=== PATIENT | female | born 1935 | race Caucasian/White ===

== ENCOUNTER 2018-10-05 16:20 | Observation (INO) ==
[2018-10-05] MEDS ORDERED: Naloxone 0.4 MG/ML INJ IVP PRN (19:56)
--- NOTE | 2018-10-05 20:02 | Internal Med History&Physical ---
Date of Encounter: 10/05/18 Time of Encounter: 19:40 Internal Medicine - H&P: HPI Chief complaint: Abdominal pain Admitted From: Hospital to Hospital Transfer Plans for Post Hospital Care: Home History of present illness: Ms. Enriquez is a 82 year old female Patient presented to [facility] emergency room with four-day history of right-sided flank pain. The pain is intermittent, and started without provocation. She has had similar pain in the past many years ago, but did not seek medical attention at that time, and the pain resolved on its own. This pain is worse than her previous episode however. She has had associated nausea and vomiting, but denies pain with urination and hematuria. She does not think she has had a fever at home either. She describes pain as a stabbing sensation. In the [facility] emergency room, patient's vital signs were within normal limits, CBC was within normal limits as well aside from a mildly elevated white count of 14.0. Patient's BMP was also within normal limits. Lactic acid was 2.0, and urinalysis was negative for infection as well as blood. An abdomen and pelvis CT was performed that showed no acute infective or inflammatory process, but did show mild to moderate right hydronephrosis with right ureter dilation in the region where the right external iliac and common iliac arteries cross. Findings possibly due to extrinsic compression by the iliac vessels. The emergency room notified on-call urology Dr. Yost and he agreed to see the patient upon transfer to [facility]. Upon my assessment, patient is resting comfortably in the hospital bed in no acute distress. She denies chest pain, diarrhea and constipation. As above she has had an episode of nausea and vomiting earlier, but only one episode. She confirms her abdominal pain history mentioned above. She has no significant family history, aside from heart disease. She has had previous abdominal surgeries including cholecystectomy and appendectomy. She denies history of kidney disease. I discussed with her CODE STATUS, and she stated that she wishes to not be resuscitated nor intubated if they were necessary. She would not want chest compressions were intubation. Past Med Surg Social Fam HX - Past Medical History Medical history: GERD, hyperlipidemia, hypertension, myocardial infarction Additional medical history: CO 6 - 8 years ago. Psychiatric history: no psych history - Social History Smoking Status: Former smoker Smokeless Tobacco Status: No Alcohol use: none Drug use: none - Family History Mother Living Status: Cause of : blood cot Father Living Status: Hx Family Cardiac Disorders: Yes Internal Medicine - H&P: Meds Aspirin 81 mg PO DAILY 11/12/15 [History] Captopril [Capoten] 12.5 mg PO BID 11/12/15 [History] Clopidogrel [Plavix] 75 mg PO DAILY 11/12/15 [History] Ranitidine HCl [Heartburn Relief] 150 mg PO BID 11/12/15 [History] Simvastatin [Zocor] 40 mg PO HS 11/12/15 [History] Allergy/AdvReac Type Severity Reaction Status Date / Time No Known Allergies Allergy Verified 10/29/15 10:54 All Systems PM: A 10-system review of systems was performed and is negative for pertinent findings except as documented above in the HPI. - Constitutional Vitals: Temp Pulse Resp BP Pulse Ox 98.3 F 79 16 149/83 94 10/05/18 18:07 10/05/18 18:07 10/05/18 18:07 10/05/18 18:07 10/05/18 18:07 General appearance: Present: cooperative, A&O X 3, pleasant, no acute distress, answers questions appropriately Exam: - - Head Head exam: Present: normal inspection - Eye Eye exam: Present: EOMI, normal appearance - Respiratory Respiratory exam: Present: CTAB. Absent: rales, respiratory distress, rhonchi, wheezes - Cardiovascular Cardiovascular exam: Present: RRR. Absent: diastolic murmur, systolic murmur - GI/Abdominal GI/Abdominal exam: Present: normal bowel sounds, soft, tenderness Additional comments: Mild tenderness with palpation right worse than left - Extremities Exam Extremities exam: Present: warm, radial pulses palpable and symmetrical. Absent: calf tenderness, pedal edema, tenderness - Neurological Exam Neurological exam: Present: motor sensory deficit, no focal deficits, strengths equal and symetr throughout. Absent: facial droop, speech deficit - Skin Skin exam: Present: dry, normal color, warm - Assessment and Plan (1) Abdominal pain Current Visit: Yes Status: Acute Assessment and plan: Patient has abdominal pain, off and on, right side worse than left. Found to have mild to moderate hydronephrosis with dilated ureter on CT of the abdomen. Appears that there is some compression from the iliac vessels that may contribute. Patient denies having recent kidney stone or dysuria. Urology was called and will see the patient in the morning. Nothing by mouth after midnight Follow-up urology recommendations Pain management as needed Qualifiers: Abdominal location: right lower quadrant Qualified Code(s): R10.31 - Right lower quadrant pain (2) Hydronephrosis, right Current Visit: No Status: Acute Assessment and plan: Likely related to patient's abdominal pain. Management as above Urology to consult (3) GERD (gastroesophageal reflux disease) Current Visit: Yes Status: Acute Assessment and plan: Chronic, patient takes ranitidine at home Qualifiers: Esophagitis presence: without esophagitis Qualified Code(s): K21.9 - Gastro-esophageal reflux disease without esophagitis (4) DVT prophylaxis Current Visit: Yes Status: Acute Assessment and plan: SCDs - Time Spent With Patient Total time spent is greater than 50% in coordination of care (as documented) at patient's floor/unit and/or counseling patient: Greater than 35 minutes
[2018-10-05] MEDS ORDERED: Acetaminophen 325 MG TABLET PO PRN (20:08)
[2018-10-05] MEDS: Famotidine 20 MG TABLET PO SCH (22:29)
[2018-10-06 06:06] LABS: Hematocrit 40.5 % (35.3-44.9); Hemoglobin 12.9 g/dL (11.5-15.4); Mean Corpuscular HGB Conc 31.9 g/dL (31.6-35.5); Mean Corpuscular Hemoglobin 31.5 pg (28.0-33.3); Mean Corpuscular Volume 98.8 fL (83.0-100.0); Mean Platelet Volume 9.7 fL (9.4-12.4); Platelet Count 187 K/mcL (140-400); Red Cell Distribution Width 13.9 % (11.5-14.5)
[2018-10-06 06:28] LABS: BUN/Creatinine Ratio 19 (6-26); Blood Urea Nitrogen 14 mg/dL (8-23); Calcium 9.2 mg/dL (8.6-10.3); Carbon Dioxide 26 mEq/L (23-29); Chloride 106 mEq/L (98-107); Glucose 97 mg/dL (70-105); Osmolality,Calculated 294 (280-300); Potassium 3.8 mEq/L (3.5-5.1); Sodium 142 mEq/L (136-145); eGFR For Non-African Americans > 60 (> 60)
--- NOTE | 2018-10-06 08:56 | Urology - Consult Note ---
<Rosalinda Jennings N - Last Filed: 10/06/18 10:50> Date of Encounter: 10/06/18 Time of Encounter: 08:15 - Assessment and Plan (1) Hydronephrosis, right Current Visit: Yes Status: Acute Assessment and plan: Patient is an 82-year-old female who presents with right-sided hydronephrosis. Reviewed CT findings with patient at bedside. I discussed proceeding with diagnostic ureteroscopy with possible dilation and possible ureteral stent placement. As I reviewed the surgical risks and benefits, patient wished to further consider this versus observation with renal ultrasound. I explained the risk of renal stone development and risk of UTI, pyelonephritis, and renal damage. Patient ultimately decided to proceed with diagnostic ureteroscopy with possible biopsy, dilation, and stent placment. Patient will remain NPO and anticipate surgery later this morning with Dr. Yost. Urology CN:[facility] Consult date: 10/06/18 Reason for consult Urology: Hydronephrosis (right) Requesting physician: Napoleon Preciado History of present illness: Patient is an 82-year-old female who presents with right hydronephrosis. Patient reports she has a long-standing history of right flank pain, but this acutely worsened and brought her to the emergency department. Patient denies any change in voiding habits including gross hematuria, dysuria, frequency, urgency or incontinence. Patient denies any recent history of urinary tract infection, fever or chills. Patient underwent a CT of the abdomen and pelvis revealing mild to moderate right hydronephrosis and possible crossing vessel. Currently, patient is sitting upright in bed resting comfortably in no apparent distress. Patient denies any past history of renal stones. Patient denies any known family history of renal stones or malignancy. Patient admits to a 15- 20 year smoking history, but she has not smoked cigarettes in over 30 years. Past Med Surg Social Fam HX - Past Medical History Medical history: GERD, hyperlipidemia, hypertension, myocardial infarction Additional medical history: ND 6 - 8 years ago. Psychiatric history: no psych history - Past Surgical History Surgical History: appendectomy, cholecystectomy - Social History Smoking Status: Former smoker Smokeless Tobacco Status: No Alcohol use: none Drug use: none - Family History Mother Living Status: Cause of : blood cot Father Living Status: Hx Family Cardiac Disorders: Yes Medications and Allergies Aspirin 81 mg PO DAILY 11/12/15 [History] Captopril [Capoten] 12.5 mg PO BID 11/12/15 [History] Clopidogrel [Plavix] 75 mg PO DAILY 11/12/15 [History] Ranitidine HCl [Heartburn Relief] 150 mg PO BID 11/12/15 [History] Simvastatin [Zocor] 40 mg PO HS 11/12/15 [History] Allergy/AdvReac Type Severity Reaction Status Date / Time No Known Allergies Allergy Verified 10/29/15 10:54 Review of Systems - Constitutional no chills, no fatigue, no fever(s) - EENT Nose, mouth and throat: no dry mouth, no headache(s) - Cardiovascular no chest pain, no diaphoresis, no dyspnea - Respiratory no cough, no dyspnea - Gastrointestinal abdominal pain, change in bowel habits (constipation ), no nausea, no vomiting - Genitourinary Genitourinary: flank pain, no change in urinary stream, no difficulty urinating, no dysuria, no hematuria, no urinary frequency, no urinary hesitancy, no urinary incontinence, no urinary urgency - Musculoskeletal back pain, no muscle weakness - Integumentary no erythema, no rash - Neurological no confusion, no syncope - Psychiatric no anxiety, no confusion - Hematologic/Lymphatic no easy bleeding, no easy bruising - Allergic/Immunologic no throat swelling, no wheezing Exam Initial Vital Signs Temp Pulse Resp BP Pulse Ox 98.3 F 79 16 149/83 94 10/05/18 18:07 10/05/18 18:07 10/05/18 18:07 10/05/18 18:07 10/05/18 18:07 - General physical appearance Present: no distress, no pain - Eyes Present: PERRL, normal ocular movement - ENT Present: normal nares, no hearing loss, no congestion - Neck Present: no masses, trachea midline, no lymphadenopathy - Respiratory Present: normal respiratory effort - Cardiovascular Cardiovascular exam IM: RRR - Abdomen Abdomen: Present: soft, non tender - Integumentary Present: no rash, no abnormal pigmentation - Neurologic Present: normal coordination - Musculoskeletal Present: other (Normal posture) Urology Results - Labs 10/06/18 04:57 10/06/18 04:57 Abnormal lab results POC Glucose 103 mg/dL (70-99) H 10/06/18 05:24 Diabetes panel 10/06/18 Range/Units 04:57 Sodium 142 (136-145) mEq/L Potassium 3.8 (3.5-5.1) mEq/L Chloride 106 (98-107) mEq/L Carbon Dioxide 26 (23-29) mEq/L BUN 14 (8-23) mg/dL Creatinine 0.74 (0.60-1.20) mg/dL Glucose 97 (70-105) mg/dL Calcium 9.2 (8.6-10.3) mg/dL Calcium panel 10/06/18 Range/Units 04:57 Calcium 9.2 (8.6-10.3) mg/dL Pituitary panel 10/06/18 Range/Units 04:57 Sodium 142 (136-145) mEq/L Potassium 3.8 (3.5-5.1) mEq/L Chloride 106 (98-107) mEq/L Carbon Dioxide 26 (23-29) mEq/L BUN 14 (8-23) mg/dL Creatinine 0.74 (0.60-1.20) mg/dL Glucose 97 (70-105) mg/dL Calcium 9.2 (8.6-10.3) mg/dL Adrenal panel 10/06/18 Range/Units 04:57 Sodium 142 (136-145) mEq/L Potassium 3.8 (3.5-5.1) mEq/L Chloride 106 (98-107) mEq/L Carbon Dioxide 26 (23-29) mEq/L BUN 14 (8-23) mg/dL Creatinine 0.74 (0.60-1.20) mg/dL Glucose 97 (70-105) mg/dL Calcium 9.2 (8.6-10.3) mg/dL All other labs normal. - Imaging CT scan - abdomen: report reviewed, image reviewed CT scan - pelvis: report reviewed, image reviewed Consult Discharge Plan - Plan Referrals: NONE,PCP [Primary Care Provider] - <Napoleon Yost - Last Filed: 10/06/18 12:40> Date of Encounter: 10/06/18 - Assessment and Plan (1) Obstruction of right ureteropelvic junction (UPJ) Current Visit: Yes Status: Acute Assessment and plan: CT images reviewed and interpreted independently. Patient with one-week history of intermittent low-grade nagging abdominal pain. CT with only identifiable abnormality being moderate hydroureteronephrosis on the right to proximal level of the UPJ. There is some additional dilation of short segment of the distal mid ureter, but the proximal ureter is not dilated. Discussed findings with patient and possibility of UPJ as a source of pain. Plan: Add on for stenting trial today. (2) Abdominal pain Current Visit: Yes Status: Acute Assessment and plan: Unclear etiology. Right-sided in nature 1 week. Only identifiable abnormality on CT is moderate right hydronephrosis. Plan: Diagnostic ureteroscopy. Qualifiers: Abdominal location: right lower quadrant Qualified Code(s): R10.31 - Right lower quadrant pain (3) Hydronephrosis, right Current Visit: Yes Status: Acute Assessment and plan: Patient seen and examined independently. History, review of systems and physi yari exam findings of PA verified. All pertinent imaging reviewed. I am in agreement with the assessment and plan as outlined by our Urologic Surgery Department Physician Tennis Desk Team Member, Michaela. Discussed options for management with patient in detail. Bilateral add on for urgent urinary diversion today via stent placement. Exam Initial Vital Signs Temp Pulse Resp BP Pulse Ox 98.3 F 79 16 149/83 94 10/05/18 18:07 10/05/18 18:07 10/05/18 18:07 10/05/18 18:07 10/05/18 18:07 Urology Results - Labs 10/06/18 04:57 10/06/18 04:57 Abnormal lab results POC Glucose 103 mg/dL (70-99) H 10/06/18 05:24 Diabetes panel 10/06/18 Range/Units 04:57 Sodium 142 (136-145) mEq/L Potassium 3.8 (3.5-5.1) mEq/L Chloride 106 (98-107) mEq/L Carbon Dioxide 26 (23-29) mEq/L BUN 14 (8-23) mg/dL Creatinine 0.74 (0.60-1.20) mg/dL Glucose 97 (70-105) mg/dL Calcium 9.2 (8.6-10.3) mg/dL Calcium panel 10/06/18 Range/Units 04:57 Calcium 9.2 (8.6-10.3) mg/dL Pituitary panel 10/06/18 Range/Units 04:57 Sodium 142 (136-145) mEq/L Potassium 3.8 (3.5-5.1) mEq/L Chloride 106 (98-107) mEq/L Carbon Dioxide 26 (23-29) mEq/L BUN 14 (8-23) mg/dL Creatinine 0.74 (0.60-1.20) mg/dL Glucose 97 (70-105) mg/dL Calcium 9.2 (8.6-10.3) mg/dL Adrenal panel 10/06/18 Range/Units 04:57 Sodium 142 (136-145) mEq/L Potassium 3.8 (3.5-5.1) mEq/L Chloride 106 (98-107) mEq/L Carbon Dioxide 26 (23-29) mEq/L BUN 14 (8-23) mg/dL Creatinine 0.74 (0.60-1.20) mg/dL Glucose 97 (70-105) mg/dL Calcium 9.2 (8.6-10.3) mg/dL All other labs normal.
[2018-10-06] MEDS ORDERED: Aspirin 81 MG TAB.CHEW PO SCH (09:00)
[2018-10-06] MEDS: Famotidine 20 MG TABLET PO SCH (10:09)
--- NOTE | 2018-10-06 10:51 | Internal Med Progress Note ---
Hospitalist Progress Note - Encounter Date of Encounter: 10/06/18 Time of Encounter: 09:49 - Subjective Interval History: Patient seen and examined this morning at bedside. No acute overnight events. Denies any nausea vomiting fevers chills or diarrhea. Has mild right-sided abdominal pain. Denies any urinary complaints. Hemodynamic stable. - Exam Vitals: Temp Pulse Resp BP Pulse Ox 98.1 F 71 14 115/63 93 10/06/18 04:38 10/06/18 04:38 10/06/18 04:38 10/06/18 04:38 10/06/18 04:38 Exam: General: In no acute distress. Respiratory exam: CTAB. no accessory muscle use, rales, rhonchi, wheezes Cardiovascular exam: RRR, +S1, +S2. 3/6 systolic murmur noted, no gallop, rubs. GI/Abdominal exam: mild rt flank tenderness, Non-distended, normal bowel sounds, soft, no peritoneal signs. Extremities exam: no pedal edema, pulses palpable in b/l lower extremities. no calf tenderness Neurological exam: CN II-XII intact, AO X3, no focal deficits. Skin exam: No skin rash - Summary of Assessment and Plan Summary of Assessment and Plan: Assessment Abdominal pain Right-sided hydronephrosis GERD DVT prophylaxis Plan - Mild to moderate hydronephrosis on right on CT. Urology following. Plan for ureteroscopy and possible stenting - Monitor renal function. UA unremarkable. - Keep nothing by mouth. - Time Spent with Patient Total time spent is greater than 50% in coordination of care (as documented) at patient's floor/unit and/or counseling patient: Internal Medicine: Result - Labs CBC & Chem 7: 10/06/18 04:57 10/06/18 04:57 Labs: Short CBC 10/06/18 Range/Units 04:57 WBC 8.4 (4.3-11.1) K/mcL Hgb 12.9 (11.5-15.4) g/dL Hct 40.5 (35.3-44.9) % Plt Count 187 (140-400) K/mcL BMP 10/06/18 04:57 Sodium 142 Potassium 3.8 Chloride 106 Carbon Dioxide 26 BUN 14 Creatinine 0.74 Glucose 97 Calcium 9.2 Consult Discharge Plan - Plan Referrals: NONE,PCP [Primary Care Provider] -
[2018-10-06] MEDS ORDERED: *HR* Propofol 200 MG/20 ML VIAL IVP ONE (12:40)
[2018-10-06] MEDS ORDERED: *HR* FentaNYL (PF) 100 MCG/2 ML VIAL ONE (12:40)
[2018-10-06] MEDS ORDERED: Lidocaine -MPF 2% 2 ML VIAL ONE (12:42)
[2018-10-06] MEDS ORDERED: Dexamethasone 4 MG/ML VIAL ONE (12:42)
[2018-10-06] MEDS ORDERED: Ondansetron 4 MG/2 ML VIAL ONE (12:42)
--- NOTE | 2018-10-06 12:50 | Anesthesia Evaluation PreOp ---
Date of Encounter: 10/06/18 Time of Encounter: 12:51 - Past History Planned Operation: cysto, right RP, ureteroscopy, dilation Cardiac History: ND (7-8 years ago), HTN, Hyperlipidemia, Cardiac Stent (7-8 years ago), Other (can walk up a flight of stairs slowly) Pulmonary History: Former smoker (quit a long time ago) BUSINESS OFFICE ASSISTANT History: Denies Any Significant HX Other Medical History: Renal (right hydronephrosis (mild)), GERD Anesthesia History: No Prior Anesthetic Complications, Past Anesthesia (appendectomy, cholecystectomy) Alcohol Use: none Drug use: none Medications and Allergies Aspirin 81 mg PO DAILY 11/12/15 [History] Captopril [Capoten] 12.5 mg PO BID 11/12/15 [History] Clopidogrel [Plavix] 75 mg PO DAILY 11/12/15 [History] Ranitidine HCl [Heartburn Relief] 150 mg PO BID 11/12/15 [History] Simvastatin [Zocor] 40 mg PO HS 11/12/15 [History] Allergy/AdvReac Type Severity Reaction Status Date / Time No Known Allergies Allergy Verified 10/29/15 10:54 - Meds/Allergy Pre-op Review Medications Reviewed: Yes Allergies Reviewed: Yes Beta Blockers on Current Med List: No Anesthesia Results - Labs 10/06/18 04:57 10/06/18 04:57 - Imaging EKG: report reviewed, image reviewed (SINUS BRADYCARDIA LEFT ANTERIOR FASCICULAR BLOCK POSSIBLE ANTERIOR MYOCARDIAL INFARCTION, PROBABLY OLD POOR R WAVE PROGRESSION) Anesthesia Exam Last Vital Signs Temp 98.6 F 10/06/18 10:49 Pulse 80 10/06/18 10:49 Resp 14 10/06/18 10:49 BP 123/71 10/06/18 10:49 Pulse Ox 94 10/06/18 10:49 Weight: 56 kg NPO (# of Hours): > 8 hrs - HEENT Pupil (Motor): Pupils equal, EOMI Mallampati: III Teeth: Edentulous - BUSINESS OFFICE ASSISTANT LOC: Oriented - Cardiac Rhythm: Regular Murmur: None - Pulmonary Breath Sounds: bilateral Clear Respiratory Effort: Symmetrical Anesthesia Assess/Plan ASA Score: 3 Level of consciousness: Cooperative Anesthetic Plan: General Monitoring Plan: Standard Monitors Recovery Plan: PACU
[2018-10-06] MEDS ORDERED: *HR* OxyCODONE Immed Rel 5 MG TABLET PO PRN ×2 (12:52→14:25)
[2018-10-06] MEDS ORDERED: Isovue-300 50 ML VIAL ONE ×2 (13:02→13:30)
--- NOTE | 2018-10-06 13:38 | Operative Note ---
Date of procedure: 10/06/18 Pre-op diagnosis: Right hydronephrosis, right flank pain Post-op diagnosis: same Procedure: Cystoscopy, right retrograde ureteropyelography, intraoperative interpretation of radial graphic images in real time by surgeon to facilitate procedure, right diagnostic ureteroscopy, right double-J stent placement Implants: none Complications: none Anesthesia: GETA Was there an veterinary assistant present: No Estimated blood loss (cc): 0 Specimen: none Condition: stable Disposition: PACU Procedure in Detail: The patient brought the operating theater placed on table supine position. This ended the operative procedure study. The patient placed dorsal lithotomy then prepped and draped in normal sterile fashion. A cystoscope was inserted urethral meatus and advanced with the bladder under direct visualization. There were no mucosal abnormalities the urethra or bladder. An open-ended catheter was placed the tip of the right ureteral orifice and with gentle injection of contrast a right retrograde ureteropyelogram was performed. Intraoperative interpretation of radial graphic images in real time by surgeon revealed a few areas of dilation along the mid distal ureter but no evidence of filling defect or obstruction. At the level of the UPJ a tight stream of contrast is seen entering the renal pelvis consistent with at least partial UPJ obstruction. Based on these findings further anatomic evaluation via ureteroscopy was indicated. Under fluoroscopic guidance a a Glidewire was advanced into the upper right collecting system. Alongside the Glidewire a rigid ureteroscopy was advanced from the right ureteral orifice all the way to the level of the UPJ and into the renal pelvis. No filling defects stones or strictures were encountered. At the level of the UPJ this fairly fixed ring of fairly wide caliber was smaller than the remainder of the ureter. Pulsation was seen at this site suggestive of a crossing vessel. Ureter scope was removed. Over the existing Glidewire a 6 x 24 double-J stent was advanced. Was sent was felt in good position Glidewire was removed. Stent position was confirmed fluoroscopically.
--- NOTE | 2018-10-06 14:12 | Anesthesia Evaluation Post Op ---
Date of Encounter: 10/06/18 Time of Encounter: 14:11 - Vital Signs Vital Signs: Vital Signs/O2 Sat, Most Current Temp Pulse Resp BP Pulse Ox 98.6 F 73 20 156/85 98 10/06/18 13:45 10/06/18 14:05 10/06/18 14:05 10/06/18 14:05 10/06/18 14:05 - Lungs Lungs: Clear Ascult./Percussion - Airway Airway: Non-obstructed - Cardiovascular Regular Rate - Mental Status Mental Status: Alert & Oriented, Answers Appropriately - Pain Pain Scale: 0 Pain Scale used: Numeric (1 - 10) - Nausea Vomiting Nausea Vomiting: Not Present - Hydration Hydration: Ice chips, Has not voided - Discharge PostOp Status: Transfer Patient to floor
[2018-10-06] MEDS ORDERED: Naloxone 0.4 MG/ML INJ IVP PRN (14:25)
[2018-10-06] MEDS ORDERED: Acetaminophen 325 MG TABLET PO PRN (14:25)
[2018-10-06] MEDS ORDERED: *HR* FentaNYL (PF) 100 MCG/2 ML VIAL IVP ONE (18:07)
[2018-10-07 05:21] LABS: BUN/Creatinine Ratio 21 (6-26); Blood Urea Nitrogen 18 mg/dL (8-23); Calcium 9.6 mg/dL (8.6-10.3); Carbon Dioxide 26 mEq/L (23-29); Chloride 102 mEq/L (98-107); Glucose 135 mg/dL (70-105); Osmolality,Calculated 288 (280-300); Potassium 4.2 mEq/L (3.5-5.1); Sodium 137 mEq/L (136-145); eGFR For Non-African Americans > 60 (> 60)
[2018-10-07] MEDS ORDERED: Aspirin 81 MG TAB.CHEW PO SCH (09:00)
[2018-10-07] MEDS ORDERED: Famotidine 20 MG TABLET PO SCH (09:00)
--- NOTE | 2018-10-07 09:53 | Urology Progress Note ---
Date of Encounter: 10/07/18 Time of Encounter: 09:10 - Assessment and Plan (1) Hydronephrosis, right Current Visit: Yes Status: Acute Assessment and plan: Patient is an 82-year-old female who presents one day status post cystoscopy, right retrograde ureteropyelography, intraoperative interpretation of radial graphic images in real time by surgeon to facilitate procedure, right diagnostic ureteroscopy, right double-J stent placement. Vital signs are currently stable and afebrile. I discussed postoperative expectations with indwelling ureteral stent. Reviewed intraoperative findings including possible UPJ obstruction. I explained there were no obvious obstructive calculi or tumors. Patient verbalizes understanding, and she will follow up with Dr. Yost within 2-4 weeks for a postoperative check. Progress Note Narrative: POD #1. Patient seen and examined sitting upright in bed in no apparent distress. Patient is tolerating normal diet without nausea or vomiting. Patie nt reports she is voiding without difficulty. Patient denies fever, chills, flank pain. Objective Initial Vital Signs Temp Pulse Resp BP Pulse Ox 98.3 F 79 16 149/83 94 10/05/18 18:07 10/05/18 18:07 10/05/18 18:07 10/05/18 18:07 10/05/18 18:07 - General physical appearance Present: well developed, no distress, no pain - Respiratory Present: normal expansion, normal respiratory effort - Abdomen Present: soft, non tender - Integumentary Present: no rash, no abnormal pigmentation - Musculoskeletal Present: normal posture - Psychiatric Present: oriented to time, oriented to person, oriented to place, speech is normal, memory intact - Labs 10/06/18 04:57 10/07/18 04:33 Diabetes panel 10/07/18 Range/Units 04:33 Sodium 137 (136-145) mEq/L Potassium 4.2 (3.5-5.1) mEq/L Chloride 102 (98-107) mEq/L Carbon Dioxide 26 (23-29) mEq/L BUN 18 (8-23) mg/dL Creatinine 0.84 (0.60-1.20) mg/dL Glucose 135 H (70-105) mg/dL Calcium 9.6 (8.6-10.3) mg/dL Calcium panel 10/07/18 Range/Units 04:33 Calcium 9.6 (8.6-10.3) mg/dL Pituitary panel 10/07/18 Range/Units 04:33 Sodium 137 (136-145) mEq/L Potassium 4.2 (3.5-5.1) mEq/L Chloride 102 (98-107) mEq/L Carbon Dioxide 26 (23-29) mEq/L BUN 18 (8-23) mg/dL Creatinine 0.84 (0.60-1.20) mg/dL Glucose 135 H (70-105) mg/dL Calcium 9.6 (8.6-10.3) mg/dL Adrenal panel 10/07/18 Range/Units 04:33 Sodium 137 (136-145) mEq/L Potassium 4.2 (3.5-5.1) mEq/L Chloride 102 (98-107) mEq/L Carbon Dioxide 26 (23-29) mEq/L BUN 18 (8-23) mg/dL Creatinine 0.84 (0.60-1.20) mg/dL Glucose 135 H (70-105) mg/dL Calcium 9.6 (8.6-10.3) mg/dL Consult Discharge Plan - Plan Referrals: Rosie Mora DO [Non-Partnered Physician] -
[2018-10-07 10:13] VITALS: BP 138/82
--- NOTE | 2018-10-07 11:31 | Discharge Summary ---
- NOTES TO OUTPATIENT PROVIDER Notes to Outpatient Provider: 1. F/U with urology as outpatient as scheduled. Date of Encounter: 10/07/18 Time of Encounter: 10:00 - Discharge Diagnosis (1) Hydronephrosis, right Priority: Primary Status: Acute (2) Obstruction of right ureteropelvic junction (UPJ) Priority: Primary Status: Acute Hospital course: Ms. Enriquez is a 82 year old female transferred from [facility] emergency room for right flank pain. Abdominal CT shows right-sided hydronephrosis. Urine analysis not to suggest UTI. Patient was placed on pain medications, urology consult was called. Patient had right diagnostic ureteroscopy, right double-J stent placement by urology. Patient has no fever, no leukocytosis. Feels right flank pain has improved after procedure. I have seen and examined the patient today. Patient is awake alert, oriented 3. Denies fever. Denies nausea vomiting. Still have mild abdominal pain, significantly improved after procedure. No diarrhea. Vitals are stable. Labs reviewed, unremarkable. Will DC patient home. Patient will follow-up with urology in 2-4 weeks. Patient lives alone but patient's son lives nearby and per patient her son visits her every day. Patient will be arranged home based assistant after discharge per continuous pillowcase cutter. Discharge discussed with: patient - Time Spent with Patient Total time spent providing and/or coordinating discharge services: 40 minutes Time spent: Greater than 30 minutes - Discharge Medications Prescriptions: Continued Simvastatin [Zocor] 40 mg PO HS Captopril [Capoten] 12.5 mg PO BID Clopidogrel [Plavix] 75 mg PO DAILY Aspirin 81 mg PO DAILY Ranitidine HCl [Heartburn Relief] 150 mg PO BID Home Medications: Aspirin 81 mg PO DAILY 11/12/15 [History] Captopril [Capoten] 12.5 mg PO BID 11/12/15 [History] Clopidogrel [Plavix] 75 mg PO DAILY 11/12/15 [History] Ranitidine HCl [Heartburn Relief] 150 mg PO BID 11/12/15 [History] Simvastatin [Zocor] 40 mg PO HS 11/12/15 [History] Allergies/Adverse Reactions: Allergy/AdvReac Type Severity Reaction Status Date / Time No Known Allergies Allergy Verified 10/29/15 10:54 Date of admission: 05/06/19 17:53 Primary care physician: PCP NONE Consults: 10/05/18 20:19 Consult to Urology [CONS] Routine Consulting Provider: Urology [facility] Reason for Consult: Hydronephrosis, discussed with Dr[facility] Yost from [facility] prior to transfer Call Completed: Yes Discharging clinician: Neena Nina Anticipated date of discharge: 10/07/18 - Constitutional Vitals: Temp Pulse Resp BP Pulse Ox 97.7 F 83 16 138/82 96 10/07/18 10:11 10/07/18 10:11 10/07/18 10:11 10/07/18 10:11 10/07/18 10:11 General appearance: Present: cooperative, A&O X 3, pleasant, no acute distress, answers questions appropriately Exam: Pt is AAO x 3, in NAD HEENT: NC/AT, PERRL Neck: Supple, no JVD, no LAD Lungs: CTA b/l Heart: S1S2, RRR Abd: Soft, mild tender without rebound or guarding, BS present Ext: ROM wnl, no pedal edema Neuro: No focal deficit - Patient Status Disposition: Home, Self-Care Condition: Good Functional capacity at discharge: uses cane/walker Overall status at discharge: patient is back to baseline - Discharge Instructions Follow Up With: Rosie Mora DO [Non-Partnered Physician] - - Diet and Activity Activity: increase activity as tolerated Diet: low fat, low cholesterol, low salt diet
== END 2018-10-07 14:33 | disposition home or self-care (01) ==
LOC: 3ANU → SUATTDRO 17:53
PROVIDERS: ADMIT Internal Medicine; ATTEND Internal Medicine

== ENCOUNTER 2020-08-29 13:53 | Inpatient (IN) ==
[2020-08-29] MEDS ORDERED: *HR* Heparin 10,000 UNIT/10 ML VIAL ONE (14:03)
[2020-08-29] MEDS ORDERED: Nitroglycerin 1,000 MCG/5 ML VIAL IV ONE (14:04)
[2020-08-29] MEDS ORDERED: 0.9 % Sodium Chloride 2,000 ML ONE (14:04)
[2020-08-29] MEDS ORDERED: Heparin 1,000 UNITS/500 mL 500 ML ONE (14:04)
[2020-08-29] MEDS ORDERED: ISOVUE-370 200 ML INFUS..BTL ONE (14:04)
[2020-08-29] MEDS ORDERED: *HR* FentaNYL (PF) 100 MCG/2 ML VIAL ONE (14:33)
[2020-08-29] MEDS ORDERED: *HR* Midazolam HCl 2 MG/2 ML VIAL ONE (14:33)
[2020-08-29] MEDS ORDERED: *HR* Bivalirudin 250 MG VIAL IVC ONE (15:08)
[2020-08-29] MEDS ORDERED: Acetaminophen 325 MG TABLET PO PRN (15:46)
[2020-08-29] MEDS ORDERED: Nitroglycerin 0.4 MG TAB.SUBL SL PRN (15:46)
[2020-08-29] MEDS ORDERED: Perflutren Lipid Microsphere 1.3 ML in 0.9 % Sodium Chloride 8.7 ML IVP PRN (15:46)
[2020-08-29] MEDS ORDERED: 0.9 % Sodium Chloride 1,000 ML IVC SCH (16:00)
[2020-08-29] MEDS ORDERED: Ondansetron 4 MG/2 ML VIAL IVP PRN (17:34)
[2020-08-29] MEDS ORDERED: *HR* Atropine Sulfate 1 MG/10 ML SYRINGE ONE (19:24)
[2020-08-29] MEDS: *HR* Ticagrelor 90 MG TABLET PO SCH (23:09)
[2020-08-30 04:55] LABS: Chol/HDL Ratio 3.9 (0-4.9)
[2020-08-30 05:01] LABS: Troponin I 27.53 ng/mL (< 0.04)
[2020-08-30] MEDS: *HR* Ticagrelor 90 MG TABLET PO SCH ×2 (08:29→19:47)
[2020-08-30] MEDS: Aspirin 81 MG TAB.CHEW PO SCH (08:29)
[2020-08-30] MEDS ORDERED: lisinopriL 5 MG TABLET PO SCH (09:00)
[2020-08-30] MEDS ORDERED: Metoprolol XL (24 HR) Succ 25 MG TAB.ER.24H PO SCH (09:00)
[2020-08-30 11:07] LABS: Basophils % 0.2 %; Eosinophils % 0.3 %; Immature Granulocytes % 0.8 % (0-4); Lymphocytes # 0.9 K/mcL (0.6-4.6); Mean Corpuscular HGB Conc 33.3 g/dL (31.6-35.5); Mean Platelet Volume 9.7 fL (9.4-12.4); Monocytes # 0.9 K/mcL (0.0-1.3); Monocytes % 7.3 %; Neutrophils # 10.7 K/mcL (1.6-8.9); Platelet Count 204 K/mcL (140-400); Red Blood Count 3.94 M/mcL (3.82-4.97); Red Cell Distribution Width 12.8 % (11.5-14.5); Segmented Neutrophils % 84.4 %; White Blood Count 12.7 K/mcL (4.3-11.1)
[2020-08-30 11:24] LABS: BUN/Creatinine Ratio 18 (6-26); Blood Urea Nitrogen 12 mg/dL (8-23); Calcium 8.4 mg/dL (8.6-10.3); Carbon Dioxide 22 mEq/L (23-29); Chloride 106 mEq/L (98-107); Glucose 112 mg/dL (70-105); Osmolality,Calculated 285 (280-300); Potassium 3.7 mEq/L (3.5-5.1); Sodium 137 mEq/L (136-145); eGFR For African Americans > 60 (> 60); eGFR For Non-African Americans > 60 (> 60)
[2020-08-31] MEDS: Aspirin 81 MG TAB.CHEW PO SCH (07:31)
[2020-08-31] MEDS: *HR* Ticagrelor 90 MG TABLET PO SCH ×2 (07:31→21:05)
[2020-08-31 12:21] LABS: Hematocrit 38.8 % (35.3-44.9); Hemoglobin 12.8 g/dL (11.5-15.4); Mean Corpuscular Hemoglobin 32.5 pg (28.0-33.3); Mean Corpuscular Volume 98.5 fL (83.0-100.0); Mean Platelet Volume 9.8 fL (9.4-12.4); Platelet Count 210 K/mcL (140-400); Red Blood Count 3.94 M/mcL (3.82-4.97); Red Cell Distribution Width 13.1 % (11.5-14.5); White Blood Count 11.2 K/mcL (4.3-11.1)
[2020-08-31 12:39] LABS: BUN/Creatinine Ratio 25 (6-26); Blood Urea Nitrogen 20 mg/dL (8-23); Calcium 8.9 mg/dL (8.6-10.3); Carbon Dioxide 27 mEq/L (23-29); Chloride 103 mEq/L (98-107); Glucose 113 mg/dL (70-105); Osmolality,Calculated 285 (280-300); Potassium 3.6 mEq/L (3.5-5.1); Sodium 136 mEq/L (136-145); eGFR For African Americans > 60 (> 60); eGFR For Non-African Americans > 60 (> 60)
[2020-08-31] MEDS ORDERED: 0.9 % Sodium Chloride 250 ML IV ONE (12:39)
[2020-08-31] MEDS: Metoprolol XL (24 HR) Succ 25 MG TAB.ER.24H PO SCH ×2 (13:26→21:05)
[2020-09-01 09:07] LABS: Hematocrit 40.8 % (35.3-44.9); Hemoglobin 13.4 g/dL (11.5-15.4); Mean Corpuscular HGB Conc 32.8 g/dL (31.6-35.5); Mean Corpuscular Hemoglobin 32.9 pg (28.0-33.3); Mean Corpuscular Volume 100.2 fL (83.0-100.0); Mean Platelet Volume 9.8 fL (9.4-12.4); Platelet Count 234 K/mcL (140-400); Red Blood Count 4.07 M/mcL (3.82-4.97); Red Cell Distribution Width 13.2 % (11.5-14.5); White Blood Count 12.4 K/mcL (4.3-11.1)
[2020-09-01 09:27] LABS: BUN/Creatinine Ratio 26 (6-26); Blood Urea Nitrogen 22 mg/dL (8-23); Calcium 9.1 mg/dL (8.6-10.3); Carbon Dioxide 25 mEq/L (23-29); Chloride 106 mEq/L (98-107); Glucose 101 mg/dL (70-105); Osmolality,Calculated 291 (280-300); Potassium 3.7 mEq/L (3.5-5.1); Sodium 139 mEq/L (136-145); eGFR For African Americans > 60 (> 60); eGFR For Non-African Americans > 60 (> 60)
[2020-09-01] MEDS: *HR* Ticagrelor 90 MG TABLET PO SCH (09:54)
[2020-09-01] MEDS: Metoprolol XL (24 HR) Succ 25 MG TAB.ER.24H PO SCH (09:54)
[2020-09-01] MEDS: Aspirin 81 MG TAB.CHEW PO SCH (09:54)
[2020-09-01 11:35] VITALS: BP 103/64
== END 2020-09-01 14:55 | disposition home or self-care (01) | DRG 247 ==
LOC: ICNU → 2NNU 08-31 16:51
PROVIDERS: ADMIT Internal Medicine Interventional Cardiology; ATTEND Internal Medicine Interventional Cardiology